=== PATIENT | female | born 1995 | race Caucasian/White ===

== ENCOUNTER → 2019-01-14 | Outpatient (CLI) | payer BC ==
--- NOTE | 2019-01-14 16:50 | RAD ---
Examination: PELVIS COMPLETE History: Urinary frequency, pelvic and perineal pain Comparison/Correlation: None Findings: Transabdominal pelvic ultrasound exam was performed. Uterus measures 7.1 cm x 4.6 cm x 2.8 cm. Endometrial thickness of 0.3 cm noted. Myometrium is normal. Uterus is retroverted. Nabothian cyst involving the uterine cervix measuring up to 0.4 cm is present. Right ovary measures 3.1 cm x 1.9 cm x 1.47. Left ovary measures 2.8 cm x 2.2 cm x 1.5 cm. Normal flow involving the ovaries is evident. No pelvic free fluid. Impression: Normal pelvic ultrasound exam. Electronically signed by: Evin Murcia MD (01/14/2019 4:47 PM) [facility]
== END | disposition home or self-care (01) ==
LOC: US 10:05
PROVIDERS: ATTEND Physician Assistant
DX: N85.4 Malposition of uterus (principal)
CPT/HCPCS: 76856